=== PATIENT | female | born 1950 | race Caucasian/White ===

== ENCOUNTER 2022-08-26 12:41 | Inpatient (IN) ==
[2022-08-26] MEDS ORDERED: Lactated Ringers 1000 ml BAG 1,000 ML IV ONE ×2 (13:14→15:39)
[2022-08-26 14:31] LABS: Hematocrit 53 % (35-47); Hemoglobin 16.9 g/dL (12.0-16.0); Mean Corpuscular HGB Conc 32 g/dL (31-36); Mean Corpuscular Hemoglobin 35 pg (27-31); Mean Corpuscular Volume 110 fL (80-97); Platelet Count 360 10^3/uL (150-450); Red Blood Count 4.79 10^6 /uL (3.70-4.87); Red Cell Distribution Width 14 % (10-15); White Blood Count 13.7 10^3/uL (3.5-10.8)
[2022-08-26 14:51] LABS: ABS Lymphocytes 1.3 10^3/ul (1.0-4.8); ABS Monocytes 0.9 10^3/ul (0-0.8); ABS Neutrophils 11.4 10^3/ul (1.5-7.7); Eosinophil % 0.1 %; Lymphocyte % 9.2 %
[2022-08-26 15:11] LABS: Albumin 3.7 g/dL (3.2-5.2); Albumin/Globulin Ratio 1.5 (1-3); Calcium 9.3 mg/dL (8.6-10.3); Creatinine, Serum 2.57 mg/dL (0.51-0.95); Globulin 2.5 g/dL (2-4); Magnesium 3.4 mg/dL (1.9-2.7); Phosphorus 6.5 mg/dL (2.5-5.0); Potassium 4.2 mmol/L (3.5-5.0); Total Bilirubin 0.9 mg/dL (0.2-1.0); Total Protein 6.2 g/dL (6.4-8.9); eGFR CKD-EPI 19.5 (>60)
[2022-08-26] MEDS ORDERED: Cefepime 2 GM in Dextrose 2 GM/50 ML BAG IV SCH (18:00)
[2022-08-26] MEDS ORDERED: D5W 1000 ml BAG 1,000 ML IV SCH (18:00)
[2022-08-26 19:00] LABS: Osmolality Serum 357 mOsm/kg (275-295)
[2022-08-26 19:54] LABS: High Sensitivity Troponin 1 Hr 24 pg/mL (<15)
[2022-08-26 19:58] LABS: Calcium 8.7 mg/dL (8.6-10.3); Creatinine, Serum 2.47 mg/dL (0.51-0.95); Potassium 4.2 mmol/L (3.5-5.0); eGFR CKD-EPI 20.5 (>60)
[2022-08-26] MEDS: Cefepime 1 GM in Dextrose 1 GM/50 ML BAG IV SCH (20:42)
[2022-08-27 00:03] LABS: Urine Osmo 675 mOsm/kg (150-1150)
[2022-08-27 00:06] LABS: Urine Appearance Cloudy; Urine Bilirubin Negative (Negative); Urine Blood Negative (Negative); Urine Color Amber; Urine Glucose Negative (Negative); Urine Ketones Negative (Negative); Urine Nitrite Negative (Negative); Urine Protein 1+(30 mg/dL) (Negative); Urine Specific Gravity 1.024 (1.002-1.030); Urine Urobilinogen Positive (Negative)
[2022-08-27 00:50] LABS: Urine Bacteria Absent (Absent); Urine Red Blood Cell Absent (Absent); Urine Squamous Epithelial Cell Present (Absent); Urine White Blood Cell Absent (Absent)
[2022-08-27] MEDS: Heparin 5000 UNITS/ML 1 mL VIAL SUBCUT SCH ×4 (02:16→22:21)
[2022-08-27 02:47] LABS: Calcium 7.9 mg/dL (8.6-10.3); Creatinine, Serum 2.4 mg/dL (0.51-0.95); Potassium 3.2 mmol/L (3.5-5.0); eGFR CKD-EPI 21.2 (>60)
[2022-08-27] MEDS: KCL 20 MEQ/100 ML IVPREMIX 20 MEQ/100 ML BAG IV SCH ×2 (03:20→05:34)
[2022-08-27 06:52] LABS: ABS Basophils 0.1 10^3/ul (0-0.2); ABS Eosinophils 0.1 10^3/ul (0-0.6); ABS Monocytes 0.8 10^3/ul (0-0.8); ABS Neutrophils 5.9 10^3/ul (1.5-7.7); Eosinophil % 0.6 %; Hematocrit 41 % (35-47); Hemoglobin 13.7 g/dL (12.0-16.0); Lymphocyte % 30.3 %; Mean Corpuscular HGB Conc 33 g/dL (31-36); Mean Corpuscular Hemoglobin 36 pg (27-31); Mean Corpuscular Volume 108 fL (80-97); Mean Platelet Volume 9.8 fL (7.4-10.4); Nucleated Red Blood Cells % 0.1; Platelet Count 232 10^3/uL (150-450); Red Blood Count 3.82 10^6 /uL (3.70-4.87); Red Cell Distribution Width 14 % (10-15); White Blood Count 9.8 10^3/uL (3.5-10.8)
[2022-08-27 07:07] LABS: Magnesium 2.5 mg/dL (1.9-2.7)
[2022-08-27 08:39] LABS: Calcium 7.9 mg/dL (8.6-10.3); Creatinine, Serum 2.53 mg/dL (0.51-0.95); Potassium 3.7 mmol/L (3.5-5.0); eGFR CKD-EPI 19.9 (>60)
[2022-08-27] MEDS: Cefepime 1 GM in Dextrose 1 GM/50 ML BAG IV SCH (11:11)
[2022-08-27 12:43] LABS: Creatinine, Serum 2.48 mg/dL (0.51-0.95); Potassium 3.8 mmol/L (3.5-5.0); eGFR CKD-EPI 20.4 (>60)
[2022-08-27] MEDS ORDERED: Lactated Ringers 1000 ml BAG 1,000 ML IV ONE (17:01)
[2022-08-27 21:36] LABS: Urine Appearance Turbid; Urine Bilirubin Negative (Negative); Urine Blood Negative (Negative); Urine Color Yellow; Urine Glucose Negative (Negative); Urine Ketones Negative (Negative); Urine Nitrite Negative (Negative); Urine Protein Negative (Negative); Urine Specific Gravity 1.013 (1.002-1.030); Urine Urobilinogen Negative (Negative)
[2022-08-28 00:45] LABS: Urine Appearance Cloudy; Urine Bilirubin Negative (Negative); Urine Blood 1+ (Negative); Urine Color Yellow; Urine Glucose Negative (Negative); Urine Ketones Negative (Negative); Urine Nitrite Negative (Negative); Urine Protein Negative (Negative); Urine Specific Gravity 1.012 (1.002-1.030); Urine Urobilinogen Negative (Negative)
[2022-08-28 01:32] LABS: Urine Bacteria Absent (Absent); Urine Red Blood Cell Trace(0-2/hpf) (Absent); Urine Squamous Epithelial Cell Present (Absent); Urine White Blood Cell Trace(0-5/hpf) (Absent)
[2022-08-28] MEDS: Heparin 5000 UNITS/ML 1 mL VIAL SUBCUT SCH ×3 (05:52→22:25)
[2022-08-28 06:35] LABS: Hematocrit 38 % (35-47); Hemoglobin 12.7 g/dL (12.0-16.0); Mean Corpuscular HGB Conc 34 g/dL (31-36); Mean Corpuscular Hemoglobin 37 pg (27-31); Mean Corpuscular Volume 108 fL (80-97); Mean Platelet Volume 9.8 fL (7.4-10.4); Platelet Count 202 10^3/uL (150-450); Red Blood Count 3.48 10^6 /uL (3.70-4.87); Red Cell Distribution Width 14 % (10-15); White Blood Count 7.9 10^3/uL (3.5-10.8)
[2022-08-28 06:52] LABS: ABS Eosinophils 0.1 10^3/ul (0-0.6); ABS Lymphocytes 3.7 10^3/ul (1.0-4.8); ABS Monocytes 0.5 10^3/ul (0-0.8); ABS Neutrophils 3.6 10^3/ul (1.5-7.7); Eosinophil % 1.9 %; Lymphocyte % 45.9 %; Nucleated Red Blood Cells % 0.2
[2022-08-28 06:54] LABS: Calcium 7.8 mg/dL (8.6-10.3); Creatinine, Serum 1.8 mg/dL (0.51-0.95); Potassium 3.5 mmol/L (3.5-5.0); eGFR CKD-EPI 29.9 (>60)
[2022-08-28] MEDS: D5W 1000 ml BAG 1,000 ML IV SCH (08:30)
[2022-08-28 16:18] LABS: Blood Urea Nitrogen 56 mg/dL (6-24); CO2 Carbon Dioxide 26 mmol/L (22-32); Calcium 7.7 mg/dL (8.6-10.3); Chloride 109 mmol/L (101-111); Creatinine, Serum 1.65 mg/dL (0.51-0.95); Glucose 183 mg/dL (70-100); Sodium 143 mmol/L (135-145); eGFR CKD-EPI 33.2 (>60)
[2022-08-28 16:21] LABS: Anion Gap 8 mmol/L (2-11)
[2022-08-29] MEDS: D5W 1000 ml BAG 1,000 ML IV SCH (01:27)
[2022-08-29] MEDS: Heparin 5000 UNITS/ML 1 mL VIAL SUBCUT SCH ×3 (05:48→22:43)
[2022-08-29 06:21] LABS: ABS Basophils 0.1 10^3/ul (0-0.2); ABS Eosinophils 0.2 10^3/ul (0-0.6); ABS Lymphocytes 3.4 10^3/ul (1.0-4.8); ABS Monocytes 0.4 10^3/ul (0-0.8); Eosinophil % 2.2 %; Hematocrit 38 % (35-47); Hemoglobin 12.7 g/dL (12.0-16.0); Lymphocyte % 42.4 %; Mean Corpuscular HGB Conc 34 g/dL (31-36); Mean Corpuscular Hemoglobin 36 pg (27-31); Mean Corpuscular Volume 107 fL (80-97); Mean Platelet Volume 9.5 fL (7.4-10.4); Nucleated Red Blood Cells % 0.1; Platelet Count 198 10^3/uL (150-450); Red Blood Count 3.53 10^6 /uL (3.70-4.87); Red Cell Distribution Width 14 % (10-15)
[2022-08-29 06:36] LABS: Calcium 7.7 mg/dL (8.6-10.3); Creatinine, Serum 1.27 mg/dL (0.51-0.95); Potassium 3.9 mmol/L (3.5-5.0); eGFR CKD-EPI 45.5 (>60)
[2022-08-30] MEDS: Heparin 5000 UNITS/ML 1 mL VIAL SUBCUT SCH ×3 (05:17→22:33)
[2022-08-30 06:01] LABS: Calcium 7.8 mg/dL (8.6-10.3); Creatinine, Serum 1.08 mg/dL (0.51-0.95); Potassium 4.2 mmol/L (3.5-5.0); eGFR CKD-EPI 55.3 (>60)
[2022-08-30 09:28] LABS: Folate 6.36 ng/mL (5.90-24.80)
[2022-08-30 16:36] LABS: TSH Ultra Thyroid Stim Horm 6.65 mcIU/mL (0.34-5.60)
[2022-08-30 16:40] LABS: Albumin 2.7 g/dL (3.2-5.2); Albumin/Globulin Ratio 1.4 (1-3); Direct Bilirubin 0.1 mg/dL (0.03-0.18); Globulin 1.9 g/dL (2-4); Indirect Bilirubin 0.3 mg/dL (0.3-1.0); Total Bilirubin 0.4 mg/dL (0.2-1.0); Total Protein 4.6 g/dL (6.4-8.9)
[2022-08-31] MEDS: Heparin 5000 UNITS/ML 1 mL VIAL SUBCUT SCH ×3 (05:34→21:41)
[2022-08-31 08:54] LABS: ABS Basophils 0.1 10^3/ul (0-0.2); ABS Eosinophils 0.2 10^3/ul (0-0.6); ABS Lymphocytes 2.8 10^3/ul (1.0-4.8); ABS Monocytes 0.5 10^3/ul (0-0.8); ABS Neutrophils 5.7 10^3/ul (1.5-7.7); Eosinophil % 2.3 %; Hematocrit 40 % (35-47); Hemoglobin 13.4 g/dL (12.0-16.0); Lymphocyte % 29.7 %; Mean Corpuscular HGB Conc 33 g/dL (31-36); Mean Corpuscular Hemoglobin 36 pg (27-31); Mean Corpuscular Volume 107 fL (80-97); Mean Platelet Volume 8.8 fL (7.4-10.4); Nucleated Red Blood Cells % 0.1; Platelet Count 239 10^3/uL (150-450); Red Blood Count 3.77 10^6 /uL (3.70-4.87); Red Cell Distribution Width 14 % (10-15); White Blood Count 9.3 10^3/uL (3.5-10.8)
[2022-08-31 09:20] LABS: Calcium 8.1 mg/dL (8.6-10.3); Creatinine, Serum 0.99 mg/dL (0.51-0.95); eGFR CKD-EPI 61.3 (>60)
[2022-08-31 09:21] LABS: Potassium 5.1 mmol/L (3.5-5.0)
[2022-08-31 09:30] LABS: Free T4 0.97 ng/dL (0.61-1.12)
[2022-08-31] MEDS: Nystatin TOP POWDER 15 GM BTL TOPICAL SCH (21:41)
[2022-09-01] MEDS: Heparin 5000 UNITS/ML 1 mL VIAL SUBCUT SCH (05:47)
[2022-09-01 07:27] LABS: Calcium 8.3 mg/dL (8.6-10.3); Creatinine, Serum 0.89 mg/dL (0.51-0.95); Potassium 4.1 mmol/L (3.5-5.0); eGFR CKD-EPI 69.7 (>60)
[2022-09-01 10:11] LABS: Rapid COVID-19 Molecular Undetected (Undetected)
[2022-09-01 12:17] LABS: Influenza A Molecular Negative (Negative); Influenza B Molecular Negative (Negative)
[2022-09-01] MEDS: Nystatin TOP POWDER 15 GM BTL TOPICAL SCH (12:30)
[2022-09-01 12:32] VITALS: BP 147/46
== END 2022-09-01 13:08 | DRG 683 ==
LOC: ED 12:41 → EDHOLD 15:52 → SUATTDRO 15:52 → MEDTELE 17:04
PROVIDERS: ADMIT Internal Medicine; ATTEND Student in an Organized Health Care Education/Training Program

== ENCOUNTER 2023-08-22 15:36 | Inpatient (IN) ==
[2023-08-22 16:06] LABS: PCO2 Arterial 20 mmHg (35-45); PO2 Arterial 110 mmHg (80-100)
[2023-08-22 16:15] LABS: Hematocrit 54.4 % (35-45); Hemoglobin 16.1 g/dL (11.5-14.3); Mean Corpuscular Hemoglobin 32.5 pg (27-33); Mean Corpuscular Hgb Conc 29.7 g/dL (31-36); Mean Corpuscular Volume 109.3 fL (80-97); Mean Platelet Volume 9.2 fL (7.5-11.2); Platelet Count 663 10^3/uL (150-450); Red Blood Count 4.98 10^6/uL (3.63-4.92); Red Cell Distribution Width 15.6 % (12-17); White Blood Count 34.9 10^3/uL (3.8-11.8)
[2023-08-22] MEDS ORDERED: Albuterol 2.5mg/3 ml (0.083%) NEB.SOLN INH ONE (16:24)
[2023-08-22 16:29] LABS: High Sens Troponin Baseline 85 pg/mL (<15)
[2023-08-22 16:32] LABS: ABS Lymphocytes 0.8 10^3/uL (1.0-4.8); ABS Monocytes 2.4 10^3/uL (0.0-0.9); ABS Neutrophils 31.6 10^3/uL (1.5-7.6); ABS Nucleated RBC 0.02 10^3/ul; ALT 45 U/L (7-52); Albumin 3.8 g/dL (3.2-5.2); Albumin/Globulin Ratio 0.9 (1-3); Alkaline Phosphatase 193 U/L (35-149); Anion Gap 33 mmol/L (2-16); Blood Urea Nitrogen 52 mg/dL (6-24); CO2 Carbon Dioxide 8 mmol/L (22-32); Calcium 9.7 mg/dL (8.6-10.3); Chloride 87 mmol/L (101-111); Creatinine, Serum 1.93 mg/dL (0.51-0.95); Eosinophil % 0.1 %; Globulin 4.4 g/dL (2-4); Lymphocyte % 2.2 %; Nucleated Red Blood Cells % 0.1 %/100WBC (0.0-0.8); Sodium 128 mmol/L (135-145); Total Bilirubin 0.6 mg/dL (0.2-1.0); Total Protein 8.2 g/dL (6.4-8.9); eGFR CKD-EPI 27.4 (>60)
[2023-08-22] MEDS ORDERED: NS 0.9% 1000 ml BAG 2,000 ML IV ONE (16:34)
[2023-08-22] MEDS ORDERED: Dextrose 50% Syringe 50 ml 25 GM/50 ML SYRINGE IV PUSH PRN ×2 (16:35→18:28)
[2023-08-22] MEDS ORDERED: Insulin Infusion 100unit/100mL 100 UNIT/100 ML BAG IV ONE (16:35)
[2023-08-22 16:40] LABS: Glucose 953 mg/dL (70-100)
[2023-08-22] MEDS ORDERED: Albuterol (2.5 MG) 0.5 % CONC 0.5 ML NEB.SOLN INH ONE (17:00)
[2023-08-22] MEDS ORDERED: NORMOSOL-R pH 7.4 1000 mL BAG 1,000 ML IV SCH ×3 (17:00→19:00)
[2023-08-22 17:19] LABS: Potassium Redraw 5.8 mmol/L (3.5-5.0)
[2023-08-22] MEDS ORDERED: NORMOSOL-R pH 7.4 1000 mL BAG 1,000 ML IV ONE (18:28)
[2023-08-22] MEDS ORDERED: Insulin Infusion 100unit/100mL 100 UNIT/100 ML BAG IV SCH (19:00)
[2023-08-22] MEDS ORDERED: cefTRIAXone 1 gm/50 mL D5W 1 GM/50 ML BAG IV SCH (19:15)
[2023-08-22 20:42] LABS: Calcium 8.8 mg/dL (8.6-10.3); Creatinine, Serum 2.43 mg/dL (0.51-0.95); Potassium 5.6 mmol/L (3.5-5.0); eGFR CKD-EPI 20.8 (>60)
[2023-08-22 21:41] LABS: Creatinine, Serum 2.69 mg/dL (0.51-0.95); Potassium 5.8 mmol/L (3.5-5.0); eGFR CKD-EPI 18.4 (>60)
[2023-08-22] MEDS: NORMOSOL-R pH 7.4 1000 mL BAG 1,000 ML IV SCH (22:38)
[2023-08-22] MEDS: DOXYcycline 100 MG in NS 0.9% 250 ml 250 ML IVPB SCH (22:39)
[2023-08-22] MEDS: Insulin Infusion 100unit/100mL 100 UNIT/100 ML BAG IV SCH (23:04)
[2023-08-22 23:15] LABS: Calcium 8.2 mg/dL (8.6-10.3); Creatinine, Serum 2.48 mg/dL (0.51-0.95); Potassium 5.1 mmol/L (3.5-5.0); eGFR CKD-EPI 20.3 (>60)
[2023-08-23] MEDS ORDERED: Norepinephrine 4 MG/250mL D5W 0 MCG/0 ML BAG IV ONE (00:58)
[2023-08-23 01:02] LABS: Urine Appearance Turbid; Urine Bilirubin Negative (Negative); Urine Blood 3+ (Negative); Urine Color Amber; Urine Glucose 3+(>=500 mg/dL) (Negative); Urine Ketones Trace (Negative); Urine Nitrite Negative (Negative); Urine Protein 2+(100 mg/dL) (Negative); Urine Specific Gravity 1.017 (1.002-1.030); Urine Urobilinogen Negative (Negative)
[2023-08-23] MEDS ORDERED: Phenylephrine 40 mcg/mL 10mL (400mcg) SYRINGE ONE (01:03)
[2023-08-23 01:13] LABS: Calcium 8.3 mg/dL (8.6-10.3); Creatinine, Serum 2.5 mg/dL (0.51-0.95); Potassium 4.6 mmol/L (3.5-5.0); eGFR CKD-EPI 20.1 (>60)
[2023-08-23 01:28] LABS: Urine Bacteria Absent (Absent); Urine Red Blood Cell 3+(>10/hpf) (Absent); Urine Squamous Epithelial Cell Present (Absent); Urine White Blood Cell Trace(0-5/hpf) (Absent)
[2023-08-23] MEDS: PHENYLEPHRINE DRIP IVPREMIX 50 MG/250 ML BAG IV SCH ×2 (01:41→10:40)
[2023-08-23 02:01] LABS: PCO2 Arterial 21 mmHg (35-45); PO2 Arterial 85 mmHg (80-100)
[2023-08-23 02:43] LABS: Calcium 8.4 mg/dL (8.6-10.3); Creatinine, Serum 2.45 mg/dL (0.51-0.95); Potassium 4.6 mmol/L (3.5-5.0); eGFR CKD-EPI 20.6 (>60)
[2023-08-23] MEDS ORDERED: Morphine 2 MG/ML SYRINGE IV ONE (02:48)
[2023-08-23] MEDS: NORMOSOL-R pH 7.4 1000 mL BAG 1,000 ML IV SCH ×3 (03:18→20:21)
[2023-08-23] MEDS ORDERED: Metoprolol Tartrate 5 mg VIAL 5 ml VIAL (1 mg/ml) IV ONE (03:28)
[2023-08-23 04:18] LABS: Hematocrit 43.1 % (35-45); Hemoglobin 14.2 g/dL (11.5-14.3); Mean Corpuscular Hemoglobin 32.1 pg (27-33); Mean Corpuscular Volume 97.4 fL (80-97); Mean Platelet Volume 8.5 fL (7.5-11.2); Platelet Count 563 10^3/uL (150-450); Red Blood Count 4.42 10^6/uL (3.63-4.92); Red Cell Distribution Width 14.4 % (12-17); White Blood Count 32.6 10^3/uL (3.8-11.8)
[2023-08-23 04:39] LABS: Albumin 2.8 g/dL (3.2-5.2); Albumin/Globulin Ratio 0.9 (1-3); Calcium 8.4 mg/dL (8.6-10.3); Creatinine, Serum 2.45 mg/dL (0.51-0.95); Globulin 3.1 g/dL (2-4); Magnesium 2.9 mg/dL (1.9-2.7); Phosphorus 2.7 mg/dL (2.5-5.0); Potassium 4.5 mmol/L (3.5-5.0); Total Bilirubin 0.4 mg/dL (0.2-1.0); Total Protein 5.9 g/dL (6.4-8.9); eGFR CKD-EPI 20.6 (>60)
[2023-08-23 04:40] LABS: Calcium 8.3 mg/dL (8.6-10.3); Creatinine, Serum 2.36 mg/dL (0.51-0.95); Potassium 4.5 mmol/L (3.5-5.0); eGFR CKD-EPI 21.5 (>60)
[2023-08-23] MEDS: Insulin Infusion 100unit/100mL 100 UNIT/100 ML BAG IV SCH ×3 (04:53→20:08)
[2023-08-23 05:35] LABS: ABS Basophils 0.2 10^3/uL (0.0-0.1); ABS Lymphocytes 0.8 10^3/uL (1.0-4.8); ABS Monocytes 1.5 10^3/uL (0.0-0.9); ABS Neutrophils 30.2 10^3/uL (1.5-7.6); ABS Nucleated RBC 0.02 10^3/ul; Eosinophil % 0.1 %; Lymphocyte % 2.3 %; Nucleated Red Blood Cells % 0.1 %/100WBC (0.0-0.8)
[2023-08-23 05:36] LABS: RBC Morphology Normal (Normal); Toxic Granulation 1+
[2023-08-23 05:38] LABS: Glucose Confirmatory 492 mg/dL (70-100)
[2023-08-23 05:39] LABS: Calcium 8.3 mg/dL (8.6-10.3); Creatinine, Serum 2.39 mg/dL (0.51-0.95); Potassium 4.4 mmol/L (3.5-5.0); eGFR CKD-EPI 21.2 (>60)
[2023-08-23] MEDS ORDERED: NORMOSOL-R pH 7.4 1000 mL BAG 1,000 ML IV SCH ×2 (07:00→11:00)
[2023-08-23 08:28] LABS: PCO2 Arterial 28 mmHg (35-45); PO2 Arterial 83 mmHg (80-100)
[2023-08-23 08:45] LABS: C Reactive Protein 395.2 mg/L (<8.01)
[2023-08-23 08:53] LABS: Calcium 7.9 mg/dL (8.6-10.3); Creatinine, Serum 2.37 mg/dL (0.51-0.95); Potassium 4.1 mmol/L (3.5-5.0); eGFR CKD-EPI 21.4 (>60)
[2023-08-23] MEDS ORDERED: D10W 1000 ml BAG 1,000 ML IV PRN (09:12)
[2023-08-23] MEDS ORDERED: Potassium Phosphate IV 15 MMOL in NS 0.9% 250 ml 250 ML IVPB ONE (09:33)
[2023-08-23] MEDS ORDERED: Remdesivir 100 mg Vial 200 MG in NS 0.9% 250 ml 210 ML IV ONE (09:35)
[2023-08-23] MEDS ORDERED: D5W 1/2 NS 1000 ml BAG 1,000 ML IV SCH (10:00)
[2023-08-23] MEDS ORDERED: D10W 1000 ml BAG 1,000 ML IV SCH (10:00)
[2023-08-23] MEDS: Hydrocortisone INJ 100 MG/2ML 2 ML VIAL IV SCH ×2 (10:03→17:38)
[2023-08-23] MEDS: Acetaminophen IV 1 GM/100ML 1,000 MG/100 ML BAG IV PRN ×2 (10:13→23:03)
[2023-08-23] MEDS: Enoxaparin 100 MG/ML SYR SUBCUT SCH (10:14)
[2023-08-23] MEDS: DOXYcycline 100 MG in NS 0.9% 250 ml 250 ML IVPB SCH (10:41)
[2023-08-23] MEDS ORDERED: Vancomycin per Pharmacy 1 EA NOTE FOLLOW UP PRN (10:45)
[2023-08-23] MEDS ORDERED: Zosyn per Pharmacy NOTE FOLLOW UP SCH (11:00)
[2023-08-23] MEDS ORDERED: ZOSYN 3.375 GM x ONE DOSE over 30 miuntes IV (11:00)
[2023-08-23] MEDS: Nystatin TOP POWDER 15 GM BTL TOPICAL SCH ×2 (11:25→20:18)
[2023-08-23] MEDS ORDERED: Vancomycin 1000 MG in NS 0.9% 250 ML IVPB ONE (12:00)
[2023-08-23 14:46] LABS: Calcium 7.2 mg/dL (8.6-10.3); Creatinine, Serum 2.57 mg/dL (0.51-0.95); Potassium 4.1 mmol/L (3.5-5.0); eGFR CKD-EPI 19.4 (>60)
[2023-08-23] MEDS ORDERED: D5W 1000 ml BAG 1,000 ML IV SCH (16:00)
[2023-08-23] MEDS ORDERED: Mineral Oil ENEMA 118 ML/BOTTLE BOTTLE PR ONE (17:06)
[2023-08-23 17:16] LABS: Calcium 7.3 mg/dL (8.6-10.3); Creatinine, Serum 2.73 mg/dL (0.51-0.95); Potassium 4.1 mmol/L (3.5-5.0)
[2023-08-23] MEDS: ZOSYN 3.375 GM Q8H per EXTENDED INFUSION IV SCH (17:21)
[2023-08-23] MEDS ORDERED: Insulin GLARGINE 100 un/ml 10 ml VIAL SUBCUT ONE (17:57)
[2023-08-23 19:43] LABS: Creatinine, Serum 2.75 mg/dL (0.51-0.95); eGFR CKD-EPI 17.9 (>60)
[2023-08-23] MEDS ORDERED: DOXYcycline 100 MG in NS 0.9% 250 ml 250 ML IVPB SCH (20:00)
[2023-08-24] MEDS: NORMOSOL-R pH 7.4 1000 mL BAG 1,000 ML IV SCH (00:16)
[2023-08-24] MEDS: ZOSYN 3.375 GM Q8H per EXTENDED INFUSION IV SCH ×2 (00:22→08:05)
[2023-08-24 00:24] LABS: Calcium 6.8 mg/dL (8.6-10.3); Creatinine, Serum 2.89 mg/dL (0.51-0.95); Potassium 4.3 mmol/L (3.5-5.0); eGFR CKD-EPI 16.9 (>60)
[2023-08-24] MEDS ORDERED: NORMOSOL-R pH 7.4 1000 mL BAG 1,000 ML IV SCH (00:50)
[2023-08-24] MEDS ORDERED: Insulin Infusion 100unit/100mL 100 UNIT/100 ML BAG IV SCH (01:00)
[2023-08-24] MEDS: Hydrocortisone INJ 100 MG/2ML 2 ML VIAL IV SCH ×3 (01:50→18:26)
[2023-08-24 04:21] LABS: Hematocrit 36.9 % (35-45); Hemoglobin 12.3 g/dL (11.5-14.3); Mean Corpuscular Hemoglobin 32.2 pg (27-33); Mean Corpuscular Hgb Conc 33.3 g/dL (31-36); Mean Corpuscular Volume 96.9 fL (80-97); Mean Platelet Volume 9.5 fL (7.5-11.2); Platelet Count 377 10^3/uL (150-450); Red Blood Count 3.81 10^6/uL (3.63-4.92); Red Cell Distribution Width 14.5 % (12-17); White Blood Count 25.3 10^3/uL (3.8-11.8)
[2023-08-24 04:38] LABS: Creatinine, Serum 3.15 mg/dL (0.51-0.95); eGFR CKD-EPI 15.2 (>60)
[2023-08-24] MEDS ORDERED: Furosemide 40 mg/4 ml IV VIAL IV SLOW PU ONE ×2 (04:45→09:11)
[2023-08-24 04:47] LABS: Albumin 2.4 g/dL (3.2-5.2); Albumin/Globulin Ratio 0.9 (1-3); Globulin 2.8 g/dL (2-4); Magnesium 2.7 mg/dL (1.9-2.7); Phosphorus 2.9 mg/dL (2.5-5.0); Total Bilirubin 0.5 mg/dL (0.2-1.0); Total Protein 5.2 g/dL (6.4-8.9)
[2023-08-24 04:49] LABS: Vancomycin Trough 12.1 mcg/mL
[2023-08-24 05:02] LABS: ABS Basophils 0.1 10^3/uL (0.0-0.1); ABS Lymphocytes 1.6 10^3/uL (1.0-4.8); ABS Monocytes 0.6 10^3/uL (0.0-0.9); ABS Nucleated RBC 0.02 10^3/ul; Lymphocyte % 6.3 %; Nucleated Red Blood Cells % 0.1 %/100WBC (0.0-0.8)
[2023-08-24] MEDS ORDERED: Vancomycin Random Level NOTE FOLLOW UP ONE (06:00)
[2023-08-24] MEDS: Enoxaparin 100 MG/ML SYR SUBCUT SCH (08:05)
[2023-08-24] MEDS ORDERED: Norepinephrine 4 MG/250mL D5W 4,000 MCG/250 ML BAG IV ONE (08:28)
[2023-08-24] MEDS ORDERED: Insulin GLARGINE 100 un/ml 10 ml VIAL SUBCUT SCH ×2 (09:00→21:00)
[2023-08-24] MEDS ORDERED: Norepinephrine 4 MG/250mL D5W 4,000 MCG/250 ML BAG IV SCH (09:00)
[2023-08-24] MEDS ORDERED: Vasopressin 100 UNITS in D5W 250 ml BAG 245 ML IV SCH (09:15)
[2023-08-24] MEDS ORDERED: VASOPRESSIN IVPREMIX BTL 40 UNIT/100 ML BTL IV SCH (09:30)
[2023-08-24] MEDS: Acetaminophen IV 1 GM/100ML 1,000 MG/100 ML BAG IV PRN (09:33)
[2023-08-24] MEDS: Nystatin TOP POWDER 15 GM BTL TOPICAL SCH (10:11)
[2023-08-24] MEDS: PHENYLEPHRINE DRIP IVPREMIX 50 MG/250 ML BAG IV SCH ×2 (10:25→15:04)
[2023-08-24] MEDS ORDERED: Vancomycin 1000 MG in NS 0.9% 250 ML IVPB ONE (12:00)
[2023-08-24 14:59] VITALS: BP 102/85
[2023-08-24] MEDS ORDERED: LORazepam 2 mg VIAL 1 ml IV PUSH PRN (18:38)
[2023-08-24] MEDS ORDERED: Atropine 1% (ORAL/SL) 15 ML BTL SL PRN (18:38)
[2023-08-24] MEDS ORDERED: Morphine ORAL CONCENTRATE 5 MG/0.25 ML ORAL.SYRIN SL PRN (18:38)
[2023-08-24] MEDS ORDERED: Lorazepam PYXIS KEY PRN (18:51)
[2023-08-24] MEDS ORDERED: Morphine 2 MG/ML SYRINGE IV PRN (19:05)
[2023-08-24] MEDS ORDERED: Morphine 2 MG/ML SYRINGE ONE (19:05)
[2023-08-24] MEDS ORDERED: ZOSYN 3.375 GM Q12H per EXTENDED INFUSION IV SCH (20:00)
[2023-08-25] MEDS ORDERED: Vancomycin Random Level NOTE FOLLOW UP ONE (06:00)
== END 2023-08-24 19:51 | disposition expired | DRG 871 ==
LOC: ED 15:36 → EDHOLD 18:31 → ICU 08-23 01:12
PROVIDERS: ADMIT Internal Medicine Pulmonary Disease; ATTEND Internal Medicine Pulmonary Disease